=== PATIENT | male | born 1955 | race Caucasian/White ===

== ENCOUNTER 2016-07-06 20:14 | Emergency (ER) | payer OTHER ==
[~2016-07-06] VITALS: Ht 182.9 cm; Wt 81.8 kg
[2016-07-06 20:58] LABS: EOSINOPHIL (%) 3.5 % (0-5); EOSINOPHIL COUNT 0.2 K/uL (0-0.3); HEMATOCRIT 43.1 % (38.0-50.0); IMMATURE GRANULOCYTE (%) 0.3 % (0.0-0.7); INSTRUMENT ABS NEUTROPHIL CT 3.5 K/uL; LYMPHOCYTE COUNT 1.7 K/uL (1.0-2.8); MCH 31.8 PG (29.0-34.0); MCHC 34.8 G/DL (30.0-36.0); MCV 91.3 FL (86-99); MEAN PLAT.VOLUME 9.4 uM^3 (9.0-12.4); MONOCYTE (%) 10.1 % (3-12); MONOCYTE COUNT 0.6 K/uL (0-0.8); NEUTROPHIL (%) 58.4 % (45-76); NEUTROPHIL COUNT 3.5 K/uL (1.8-6.4); PLATELET COUNT 152 K/uL (156-360); RBC DIS.WIDTH-CV 12.2 % (11.8-14.6); RBC DIS.WIDTH-SD 40.9 % (39-53); RED BLOOD COUNT 4.72 M/uL (4.00-5.50)
[2016-07-06 21:08] LABS: CHLORIDE 91 mEq/L (99-109); SODIUM 126 mEq/L (136-147)
[2016-07-06 21:10] LABS: GLUCOSE 86 mg/dL (70-99)
[2016-07-06 21:12] LABS: ANION GAP 12 MEQ/L (2-14); TOTAL BILIRUBIN 0.6 mg/dL (0.0-1.0)
[2016-07-06 21:13] LABS: POTASSIUM 3.9 mEq/L (3.7-5.4)
[2016-07-06 21:14] LABS: ALKALINE PHOSPHATASE 47 IU/L (3-129); GFR ESTIMATE (CALCULATED) > 59 mL/min/
[2016-07-06 21:15] LABS: UREA NITROGEN (BUN) 8 mg/dL (9-23)
[2016-07-06 21:20] LABS: TROP-I INTERPRETATION NEGATIVE; TROPONIN-I < 0.01 ng/mL (0.0-0.30)
[2016-07-06 21:25] LABS: CK-MB 1.7 ng/mL (0.0-4.9)
[2016-07-06 21:35] LABS: BILIRUBIN NEGATIVE; BLOOD NEGATIVE; COLOR YELLOW ((YELLOW)); GLUCOSE (STRIP) NEGATIVE; KETONES NEGATIVE; LEUKOCYTES NEGATIVE; NITRITE NEGATIVE; PROTEIN (STRIP) NEGATIVE; SPECIFIC GRAVITY 1.006 (1.000-1.030); UROBILINOGEN 0.2 MG/DL (0.2-1.0)
[2016-07-06 21:41] LABS: ADD MIUA? NO; UCUL ADDED? NO
[2016-07-06 21:44] LABS: CREATINE KINASE 86 IU/L (1-294); TOTAL CK 86 IU/L (1-294)
[2016-07-06] MEDS ORDERED: LEVAQUIN750 MG PO (23:42)
[2016-07-07 00:03] VITALS: BP 162/88
[2016-07-07] MEDS ORDERED: LEVAQUIN750 MG PO (21:43)
[2016-07-07] MEDS ORDERED: FLOMAX0.4 MG PO (21:43)
[2016-07-07] MEDS ORDERED: FISH OIL300 MG PO (21:44)
== END 2016-07-07 00:06 | disposition left against medical advice (07) ==
LOC: EME 20:14
PROVIDERS: Emergency Medicine
PROC: 0T9B70Z Drainage of Bladder with Drainage Device, Via Natural or Artificial Opening (ICD-10-PCS; principal; 2016-07-06)
DX: R33.9 Retention of urine, unspecified (principal); R91.8 Other nonspecific abnormal finding of lung field; J18.9 Pneumonia, unspecified organism; C79.31 Secondary malignant neoplasm of brain; C79.51 Secondary malignant neoplasm of bone; E87.1 Hypo-osmolality and hyponatremia; R53.1 Weakness; N40.0 Benign prostatic hyperplasia without lower urinary tract symptoms; R20.0 Anesthesia of skin; F17.200 Nicotine dependence, unspecified, uncomplicated
CPT/HCPCS: 70450; 71275; 72132; 74174; 80053; 81003; 82550; 82553; 84484; 85025 91; 86900; 86901; 93005; 99281; 99285; J7040

== ENCOUNTER 2016-07-07 15:53 | Inpatient (IN) | payer OTHER ==
[~2016-07-07] VITALS: Ht 182.9 cm; Wt 76.8 kg
[~2016-07-07 15:53] MED LIST: LEVAQUIN750 MG PO
[2016-07-07 18:21] LABS: EOSINOPHIL (%) 2.5 % (0-5); EOSINOPHIL COUNT 0.2 K/uL (0-0.3); HEMATOCRIT 44.2 % (38.0-50.0); IMMATURE GRANULOCYTE (%) 0.3 % (0.0-0.7); INSTRUMENT ABS NEUTROPHIL CT 3.9 K/uL; LYMPHOCYTE COUNT 1.3 K/uL (1.0-2.8); MCHC 35.1 G/DL (30.0-36.0); MCV 91.1 FL (86-99); MEAN PLAT.VOLUME 9.1 uM^3 (9.0-12.4); MONOCYTE (%) 9.5 % (3-12); MONOCYTE COUNT 0.6 K/uL (0-0.8); NEUTROPHIL COUNT 3.9 K/uL (1.8-6.4); PLATELET COUNT 164 K/uL (156-360); RBC DIS.WIDTH-CV 12.1 % (11.8-14.6); RBC DIS.WIDTH-SD 40.7 % (39-53); RED BLOOD COUNT 4.85 M/uL (4.00-5.50)
[2016-07-07 18:31] LABS: CHLORIDE 93 mEq/L (99-109); POTASSIUM 4.3 mEq/L (3.7-5.4); SODIUM 127 mEq/L (136-147)
[2016-07-07 18:32] LABS: MAGNESIUM 2.2 mg/dL (1.3-2.7)
[2016-07-07 18:34] LABS: GLUCOSE 96 mg/dL (70-99)
[2016-07-07 18:35] LABS: ANION GAP 11 MEQ/L (2-14)
[2016-07-07 18:36] LABS: TOTAL BILIRUBIN 0.6 mg/dL (0.0-1.0)
[2016-07-07 18:37] LABS: ALKALINE PHOSPHATASE 49 IU/L (3-129); GFR ESTIMATE (CALCULATED) > 59 mL/min/
[2016-07-07 18:38] LABS: UREA NITROGEN (BUN) 6 mg/dL (9-23)
[2016-07-07 18:41] LABS: LIPASE 15 U/L (1.0-51.0)
[2016-07-07] MEDS ORDERED: FLOMAX0.4 MG PO (21:43)
[2016-07-07] MEDS ORDERED: LEVAQUIN750 MG PO (21:43)
[2016-07-07] MEDS ORDERED: FISH OIL300 MG PO (21:44)
[2016-07-08 02:05] VITALS: BP 136/67
[2016-07-08 04:00] VITALS: BP 157/81
[2016-07-08 07:09] LABS: HEMATOCRIT 43.9 % (38.0-50.0); MCHC 34.9 G/DL (30.0-36.0); MCV 91.8 FL (86-99); MEAN PLAT.VOLUME 9.8 uM^3 (9.0-12.4); PLATELET COUNT 165 K/uL (156-360); RBC DIS.WIDTH-CV 12.1 % (11.8-14.6); RBC DIS.WIDTH-SD 41.6 % (39-53); RED BLOOD COUNT 4.78 M/uL (4.00-5.50)
[2016-07-08 07:12] LABS: WHITE BLOOD COUNT 3.2 K/uL (4.1-10.2)
[2016-07-08 07:16] LABS: PROTHROMBIN TIME 10.5 (9.2-11.2)
[2016-07-08 07:29] LABS: ALKALINE PHOSPHATASE 50 IU/L (3-129); ANION GAP 7 MEQ/L (2-14); CHLORIDE 96 MEQ/L (99-109); GFR ESTIMATE (CALCULATED) > 59 mL/min/; GLUCOSE 132 mg/dL (70-99); SAMPLE HEMOLYSIS CHECK 0; SAMPLE ICTERIC CHECK 0; SAMPLE LIPEMIA CHECK 0; SODIUM 129 MEQ/L (136-147); TOTAL BILIRUBIN 0.8 MG/DL (0.0-1.0); UREA NITROGEN (BUN) 8 mg/dL (9-23)
[2016-07-08 08:06] VITALS: BP 145/72
[2016-07-08 11:04] VITALS: BP 124/76
[2016-07-08 15:32] VITALS: BP 130/78
[2016-07-08 19:23] VITALS: BP 128/70
[2016-07-09] VITALS (7 sets, daily range): BP systolic 121–168; BP diastolic 73–92
[2016-07-09 11:36] LABS: ANION GAP 5 MEQ/L (2-14); CHLORIDE 98 MEQ/L (99-109); GFR ESTIMATE (CALCULATED) > 59 mL/min/; GLUCOSE 127 mg/dL (70-99); POTASSIUM 4.8 MEQ/L (3.7-5.4); SAMPLE HEMOLYSIS CHECK 0; SAMPLE ICTERIC CHECK 0; SAMPLE LIPEMIA CHECK 0; SODIUM 132 MEQ/L (136-147); UREA NITROGEN (BUN) 12 mg/dL (9-23)
[2016-07-10 03:25] VITALS: BP 147/87
[2016-07-10 08:15] VITALS: BP 150/81
[2016-07-10 11:27] LABS: CHLORIDE 92 MEQ/L (99-109); POTASSIUM 4.4 MEQ/L (3.7-5.4); SODIUM 127 MEQ/L (136-147)
[2016-07-10 11:44] VITALS: BP 147/73
[2016-07-10 11:57] LABS: ANION GAP 7 MEQ/L (2-14); GFR ESTIMATE (CALCULATED) > 59 mL/min/; GLUCOSE 157 mg/dL (70-99); SAMPLE HEMOLYSIS CHECK 0; SAMPLE ICTERIC CHECK 0; SAMPLE LIPEMIA CHECK 0; UREA NITROGEN (BUN) 12 mg/dL (9-23)
[2016-07-10 16:16] VITALS: BP 128/76
[2016-07-10 19:43] VITALS: BP 137/75
[2016-07-10 23:49] VITALS: BP 155/77
[2016-07-11 03:41] VITALS: BP 143/84
[2016-07-11 07:40] VITALS: BP 137/79
[2016-07-11 11:02] LABS: ANION GAP 5 MEQ/L (2-14); CHLORIDE 99 MEQ/L (99-109); GFR ESTIMATE (CALCULATED) > 59 mL/min/; GLUCOSE 125 mg/dL (70-99); SAMPLE HEMOLYSIS CHECK 0; SAMPLE ICTERIC CHECK 0; SAMPLE LIPEMIA CHECK 0; UREA NITROGEN (BUN) 14 mg/dL (9-23)
[2016-07-11 11:12] LABS: POTASSIUM 5.6 MEQ/L (3.7-5.4); SODIUM 134 MEQ/L (136-147)
[2016-07-11 11:13] VITALS: BP 144/77
[2016-07-11 15:00] VITALS: BP 161/78
[2016-07-11 15:16] VITALS: BP 167/87
[2016-07-11 19:55] VITALS: BP 163/74
[2016-07-12 00:05] VITALS: BP 137/73
[2016-07-12 03:46] VITALS: BP 140/76
[2016-07-12 06:48] LABS: HEMATOCRIT 42.3 % (38.0-50.0); MCH 32.2 PG (29.0-34.0); MCHC 34.8 G/DL (30.0-36.0); MCV 92.6 FL (86-99); MEAN PLAT.VOLUME 9.9 uM^3 (9.0-12.4); PLATELET COUNT 181 K/uL (156-360); RBC DIS.WIDTH-CV 12.3 % (11.8-14.6); RBC DIS.WIDTH-SD 42.5 % (39-53); RED BLOOD COUNT 4.57 M/uL (4.00-5.50)
[2016-07-12 06:51] LABS: WHITE BLOOD COUNT 7.4 K/uL (4.1-10.2)
[2016-07-12 07:21] LABS: ANION GAP 8 MEQ/L (2-14); CHLORIDE 98 MEQ/L (99-109); GFR ESTIMATE (CALCULATED) > 59 mL/min/; GLUCOSE 107 mg/dL (70-99); POTASSIUM 4.2 MEQ/L (3.7-5.4); SAMPLE HEMOLYSIS CHECK 0; SAMPLE ICTERIC CHECK 0; SAMPLE LIPEMIA CHECK 0; SODIUM 133 MEQ/L (136-147); UREA NITROGEN (BUN) 14 mg/dL (9-23)
[2016-07-12 07:52] VITALS: BP 150/77
[2016-07-12 10:55] LABS: ANION GAP 8 MEQ/L (2-14); CHLORIDE 100 MEQ/L (99-109); GFR ESTIMATE (CALCULATED) > 59 mL/min/; GLUCOSE 128 mg/dL (70-99); POTASSIUM 3.7 MEQ/L (3.7-5.4); SAMPLE HEMOLYSIS CHECK 0; SAMPLE ICTERIC CHECK 0; SAMPLE LIPEMIA CHECK 0; SODIUM 134 MEQ/L (136-147); UREA NITROGEN (BUN) 15 mg/dL (9-23)
[2016-07-12 11:37] VITALS: BP 138/78
[2016-07-12 15:36] VITALS: BP 174/82
[2016-07-12 19:47] VITALS: BP 138/82
[2016-07-13] VITALS (7 sets, daily range): BP systolic 125–143; BP diastolic 66–92
[2016-07-14 03:46] VITALS: BP 147/78
[2016-07-14 07:27] VITALS: BP 141/70
[2016-07-14 15:30] VITALS: BP 174/81
[2016-07-14 23:56] VITALS: BP 152/76
[2016-07-15 08:36] VITALS: BP 150/75
[2016-07-15] MEDS ORDERED: DEXAMETHASONE4 MG PO ×2 (11:43)
[2016-07-15] MEDS ORDERED: NICOTINE PATCH1 EAC2 TD (11:43)
[2016-07-15] MEDS ORDERED: DECADRON2 MG PO (11:43)
[2016-07-15 13:11] VITALS: BP 152/77
[2016-07-15] MEDS ORDERED: LOVENOX40 MG/0.4 SC (18:02)
[2016-07-15] MEDS ORDERED: PROTONIX40 MG PO (18:02)
[2016-07-15] MEDS ORDERED: KEPPRA500 MG PO (18:03)
[2016-07-15] MEDS ORDERED: SODIUM CHLORIDE1 G1 PO (18:03)
== END 2016-07-15 16:06 | DRG 54 ==
LOC: EME 15:53 → EDOF 23:25 → 5SOUTH 23:25
PROVIDERS: Internal Medicine; Physician Assistant
PROC: 0BBJ3ZX Excision of Left Lower Lung Lobe, Percutaneous Approach, Diagnostic (ICD-10-PCS; principal; 2016-07-11)
DX: C79.49 Secondary malignant neoplasm of other parts of nervous system (principal); G93.6 Cerebral edema; J18.8 Other pneumonia, unspecified organism; E22.2 Syndrome of inappropriate secretion of antidiuretic hormone; G95.0 Syringomyelia and syringobulbia; C79.31 Secondary malignant neoplasm of brain; C79.51 Secondary malignant neoplasm of bone; C34.32 Malignant neoplasm of lower lobe, left bronchus or lung; M51.06 Intervertebral disc disorders with myelopathy, lumbar region; R33.9 Retention of urine, unspecified; G81.91 Hemiplegia, unspecified affecting right dominant side; L89.152 Pressure ulcer of sacral region, stage 2; F17.210 Nicotine dependence, cigarettes, uncomplicated; R10.13 Epigastric pain; R29.2 Abnormal reflex; R20.0 Anesthesia of skin; N40.1 Benign prostatic hyperplasia with lower urinary tract symptoms; I10 Essential (primary) hypertension; N13.8 Other obstructive and reflux uropathy; R33.8 Other retention of urine; R73.9 Hyperglycemia, unspecified; R15.9 Full incontinence of feces; R32 Unspecified urinary incontinence; E87.5 Hyperkalemia
CPT/HCPCS: 36415; 70450; 70553; 71010; 71275; 72132; 72156; 72157; 72158; 74174; 77012; 77280; 77306; 77331; 77334; 77402; 77417; 77470; 80048; 80048 91; 80053; 81003; 82550; 82553; 83690; 83735; 83930; 83935; 84132 91; 84300; 84443; 84484; 85025; 85025 91; 85027; 85610; 85730; 86900; 86901; 88305; 88341 TC; 88342 TC; 93005; 97530 GO; 97530 GP; 99281; 99285; C9113; G0103; J1100; J1644; J1650; J1956; J2060; J2270; J2405; J3010; J3411; J3475; J7030; J7040; J7050

== ENCOUNTER 2016-07-15 11:40 | Inpatient (IN) | payer OTHER ==
[~2016-07-15] VITALS: Ht 182.9 cm; Wt 76.0 kg
[~2016-07-15 11:40] MED LIST changes: +FISH OIL300 MG PO; +FLOMAX0.4 MG PO
[2016-07-15] MEDS ORDERED: DEXAMETHASONE4 MG PO ×2 (11:43)
[2016-07-15] MEDS ORDERED: NICOTINE PATCH1 EAC2 TD (11:43)
[2016-07-15] MEDS ORDERED: DECADRON2 MG PO (11:43)
[2016-07-15 16:30] VITALS: BP 168/84
[2016-07-15] MEDS ORDERED: LOVENOX40 MG/0.4 SC (18:02)
[2016-07-15] MEDS ORDERED: PROTONIX40 MG PO (18:02)
[2016-07-15] MEDS ORDERED: KEPPRA500 MG PO (18:03)
[2016-07-15] MEDS ORDERED: SODIUM CHLORIDE1 G1 PO (18:03)
[2016-07-15 23:59] VITALS: BP 138/74
[2016-07-16 05:34] VITALS: BP 136/79
[2016-07-16 05:34] LABS: HEMATOCRIT 42.3 % (38.0-50.0); MCH 33.1 PG (29.0-34.0); MCHC 36.4 G/DL (30.0-36.0); MEAN PLAT.VOLUME 9.5 uM^3 (9.0-12.4); PLATELET COUNT 191 K/uL (156-360); RBC DIS.WIDTH-CV 12.3 % (11.8-14.6); RBC DIS.WIDTH-SD 40.9 % (39-53); RED BLOOD COUNT 4.65 M/uL (4.00-5.50); WHITE BLOOD COUNT 7.4 K/uL (4.1-10.2)
[2016-07-16 05:59] LABS: ALKALINE PHOSPHATASE 34 IU/L (3-129); ANION GAP 7 MEQ/L (2-14); CHLORIDE 99 MEQ/L (99-109); GFR ESTIMATE (CALCULATED) > 59 mL/min/; GLUCOSE 138 mg/dL (70-99); POTASSIUM 3.6 MEQ/L (3.7-5.4); SAMPLE HEMOLYSIS CHECK 0; SAMPLE ICTERIC CHECK 0; SAMPLE LIPEMIA CHECK 0; SODIUM 133 MEQ/L (136-147); TOTAL BILIRUBIN 0.4 MG/DL (0.0-1.0); UREA NITROGEN (BUN) 18 mg/dL (9-23)
[2016-07-16 15:21] VITALS: BP 143/68
[2016-07-17 06:44] VITALS: BP 166/81
[2016-07-17 15:58] VITALS: BP 92/63
[2016-07-18 05:21] VITALS: BP 126/81
[2016-07-18 15:00] VITALS: BP 144/75
[2016-07-18 16:45] LABS: HEMATOCRIT 45.4 % (38.0-50.0); MCH 32.2 PG (29.0-34.0); MCV 91.9 FL (86-99); MEAN PLAT.VOLUME 8.7 uM^3 (9.0-12.4); PLATELET COUNT 208 K/uL (156-360); RBC DIS.WIDTH-CV 12.4 % (11.8-14.6); RED BLOOD COUNT 4.94 M/uL (4.00-5.50)
[2016-07-18 16:46] LABS: WHITE BLOOD COUNT 10.2 K/uL (4.1-10.2)
[2016-07-18 16:50] LABS: CHLORIDE 97 mEq/L (99-109); SODIUM 136 mEq/L (136-147)
[2016-07-18 16:51] LABS: POTASSIUM 4.4 mEq/L (3.7-5.4)
[2016-07-18 16:53] LABS: ANION GAP 10 MEQ/L (2-14)
[2016-07-18 16:55] LABS: GLUCOSE 101 mg/dL (70-99)
[2016-07-18 16:56] LABS: GFR ESTIMATE (CALCULATED) > 59 mL/min/
[2016-07-18 16:57] LABS: UREA NITROGEN (BUN) 15 mg/dL (9-23)
[2016-07-19 05:23] VITALS: BP 125/60
[2016-07-19 15:09] VITALS: BP 117/69
[2016-07-20 05:20] VITALS: BP 131/72
[2016-07-20 15:00] VITALS: BP 109/72
[2016-07-21 04:45] VITALS: BP 123/61
[2016-07-21 15:42] VITALS: BP 116/61
[2016-07-22 05:15] VITALS: BP 120/55
[2016-07-22 15:30] VITALS: BP 118/72
[2016-07-23 05:56] VITALS: BP 128/58
[2016-07-23 15:40] VITALS: BP 123/60
[2016-07-24 05:12] VITALS: BP 111/56
[2016-07-24 05:48] LABS: EOSINOPHIL (%) 0.7 % (0-5); EOSINOPHIL COUNT 0.1 K/uL (0-0.3); HEMATOCRIT 40.8 % (38.0-50.0); IMMATURE GRANULOCYTE (%) 0.9 % (0.0-0.7); IMMATURE GRANULOCYTE COUNT 0.1 K/uL; INSTRUMENT ABS NEUTROPHIL CT 8.8 K/uL; MCH 33.2 PG (29.0-34.0); MCHC 34.8 G/DL (30.0-36.0); MCV 95.3 FL (86-99); MEAN PLAT.VOLUME 8.6 uM^3 (9.0-12.4); MONOCYTE (%) 9.5 % (3-12); MONOCYTE COUNT 1.1 K/uL (0-0.8); NEUTROPHIL (%) 79.5 % (45-76); NEUTROPHIL COUNT 8.8 K/uL (1.8-6.4); PLATELET COUNT 281 K/uL (156-360); RBC DIS.WIDTH-CV 13.3 % (11.8-14.6); RBC DIS.WIDTH-SD 46.7 % (39-53); RED BLOOD COUNT 4.28 M/uL (4.00-5.50); WHITE BLOOD COUNT 11.1 K/uL (4.1-10.2)
[2016-07-24 06:15] LABS: ALKALINE PHOSPHATASE 44 IU/L (3-129); ANION GAP 11 MEQ/L (2-14); CHLORIDE 99 MEQ/L (99-109); GFR ESTIMATE (CALCULATED) > 59 mL/min/; GLUCOSE 102 mg/dL (70-99); POTASSIUM 3.6 MEQ/L (3.7-5.4); SAMPLE HEMOLYSIS CHECK 0; SAMPLE ICTERIC CHECK 0; SAMPLE LIPEMIA CHECK 0; SODIUM 138 MEQ/L (136-147); TOTAL BILIRUBIN 0.3 MG/DL (0.0-1.0); UREA NITROGEN (BUN) 16 mg/dL (9-23)
[2016-07-24 17:01] VITALS: BP 138/66
[2016-07-25 05:58] VITALS: BP 131/71
[2016-07-25 15:45] VITALS: BP 160/71
[2016-07-26 05:06] VITALS: BP 132/65
[2016-07-26 15:59] VITALS: BP 163/68
[2016-07-27 04:56] VITALS: BP 129/61
[2016-07-27 16:45] VITALS: BP 127/62
[2016-07-28 06:09] VITALS: BP 142/66
[2016-07-28 15:15] VITALS: BP 171/79
[2016-07-29 05:43] VITALS: BP 141/68
[2016-07-30 05:40] VITALS: BP 141/70
[2016-07-30 15:42] VITALS: BP 151/71
[2016-07-31 06:26] VITALS: BP 123/64
[2016-07-31 07:22] LABS: MCH 32.6 PG (29.0-34.0); MCV 95.7 FL (86-99); RBC DIS.WIDTH-SD 49.1 % (39-53); WHITE BLOOD COUNT 9.2 K/uL (4.1-10.2)
[2016-07-31 07:45] LABS: MEAN PLAT.VOLUME 8.6 uM^3 (9.0-12.4)
[2016-07-31 07:46] LABS: ALKALINE PHOSPHATASE 53 IU/L (3-129); ANION GAP 12 MEQ/L (2-14); CHLORIDE 100 MEQ/L (99-109); GFR ESTIMATE (CALCULATED) > 59 mL/min/; GLUCOSE 108 mg/dL (70-99); PLATELET COUNT 170 K/uL (156-360); POTASSIUM 4.1 MEQ/L (3.7-5.4); SAMPLE HEMOLYSIS CHECK 1; SAMPLE ICTERIC CHECK 0; SAMPLE LIPEMIA CHECK 1; SODIUM 137 MEQ/L (136-147); TOTAL BILIRUBIN 0.3 MG/DL (0.0-1.0); UREA NITROGEN (BUN) 19 mg/dL (9-23)
[2016-07-31 15:55] VITALS: BP 169/93
[2016-08-01 05:58] VITALS: BP 146/79
[2016-08-01 15:40] VITALS: BP 133/60
[2016-08-02 05:37] VITALS: BP 155/76
[2016-08-02 15:03] VITALS: BP 152/82
[2016-08-03 04:40] VITALS: BP 145/74
[2016-08-04 04:00] VITALS: BP 160/62
[2016-08-04 07:04] LABS: HEMATOCRIT 44.9 % (38.0-50.0); MCH 32.5 PG (29.0-34.0); MCHC 33.4 G/DL (30.0-36.0); MCV 97.4 FL (86-99); MEAN PLAT.VOLUME 8.5 uM^3 (9.0-12.4); PLATELET COUNT 168 K/uL (156-360); RBC DIS.WIDTH-SD 50.1 % (39-53); RED BLOOD COUNT 4.61 M/uL (4.00-5.50); WHITE BLOOD COUNT 8.4 K/uL (4.1-10.2)
[2016-08-04 07:32] LABS: ALKALINE PHOSPHATASE 50 IU/L (3-129); ANION GAP 12 MEQ/L (2-14); CHLORIDE 95 MEQ/L (99-109); GFR ESTIMATE (CALCULATED) > 59 mL/min/; GLUCOSE 87 mg/dL (70-99); SAMPLE HEMOLYSIS CHECK 0; SAMPLE ICTERIC CHECK 0; SAMPLE LIPEMIA CHECK 0; SODIUM 136 MEQ/L (136-147); UREA NITROGEN (BUN) 20 mg/dL (9-23)
[2016-08-04 07:36] LABS: POTASSIUM 3.2 MEQ/L (3.7-5.4); TOTAL BILIRUBIN 0.4 MG/DL (0.0-1.0)
[2016-08-04 15:39] VITALS: BP 129/75
[2016-08-05 04:35] VITALS: BP 188/94
[2016-08-05 06:53] LABS: ANION GAP 10 MEQ/L (2-14); CHLORIDE 97 MEQ/L (99-109); GFR ESTIMATE (CALCULATED) > 59 mL/min/; GLUCOSE 82 mg/dL (70-99); POTASSIUM 4.4 MEQ/L (3.7-5.4); SAMPLE HEMOLYSIS CHECK 0; SAMPLE ICTERIC CHECK 0; SAMPLE LIPEMIA CHECK 0; SODIUM 137 MEQ/L (136-147); UREA NITROGEN (BUN) 20 mg/dL (9-23)
[2016-08-05 07:59] VITALS: BP 137/67
[2016-08-05 12:23] VITALS: BP 135/79
[2016-08-05] MEDS ORDERED: DECADRON2 MG PO (12:49)
[2016-08-05] MEDS ORDERED: ZINC OXIDE56.7 GM TP (12:49)
[2016-08-05] MEDS ORDERED: ACETAMINOPHEN-1 EAC1 PO (12:49)
[2016-08-05] MEDS ORDERED: LOVENOX40 MG/0.4 SC (12:49)
[2016-08-05] MEDS ORDERED: FLOMAX0.4 MG PO (12:49)
[2016-08-05] MEDS ORDERED: LIDOCAINE700 MG TD (12:49)
[2016-08-05] MEDS ORDERED: PROTONIX40 MG PO (12:49)
[2016-08-05] MEDS ORDERED: SSD25GM TP (12:49)
[2016-08-05] MEDS ORDERED: KEPPRA500 MG PO (12:49)
[2016-08-05] MEDS ORDERED: SENNA PLUS TAB1 EACH PO (12:49)
[2016-08-05 15:17] LABS: HEMATOCRIT 44.3 % (38.0-50.0); MCH 31.8 PG (29.0-34.0); MCHC 33.4 G/DL (30.0-36.0); MCV 95.3 FL (86-99); MEAN PLAT.VOLUME 8.3 uM^3 (9.0-12.4); PLATELET COUNT 164 K/uL (156-360); RBC DIS.WIDTH-CV 13.8 % (11.8-14.6); RBC DIS.WIDTH-SD 48.5 % (39-53); RED BLOOD COUNT 4.65 M/uL (4.00-5.50); WHITE BLOOD COUNT 7.5 K/uL (4.1-10.2)
[2016-08-05 15:33] VITALS: BP 146/69
[2016-08-05 15:56] LABS: TROP-I INTERPRETATION NEGATIVE; TROPONIN-I < 0.01 ng/mL (0.0-0.30)
== END 2016-08-05 17:23 | disposition home health service (06) | DRG 945 ==
LOC: 3WEST 11:40
PROVIDERS: Physical Medicine & Rehabilitation Pain Medicine; Psychiatry & Neurology Neurology
PROC: F07 Physical Rehabilitation and Diagnostic Audiology, Rehabilitation, Motor Treatment (ICD-10-PCS; principal; 2016-07-15)
DX: R53.1 Weakness (principal); J18.9 Pneumonia, unspecified organism; C79.89 Secondary malignant neoplasm of other specified sites; G95.0 Syringomyelia and syringobulbia; C78.02 Secondary malignant neoplasm of left lung; E22.2 Syndrome of inappropriate secretion of antidiuretic hormone; Z74.09 Other reduced mobility; L89.322 Pressure ulcer of left buttock, stage 2; L89.312 Pressure ulcer of right buttock, stage 2; G93.9 Disorder of brain, unspecified; G82.20 Paraplegia, unspecified; N13.8 Other obstructive and reflux uropathy; R15.9 Full incontinence of feces; M48.02 Spinal stenosis, cervical region; G95.9 Disease of spinal cord, unspecified; N31.9 Neuromuscular dysfunction of bladder, unspecified; F17.200 Nicotine dependence, unspecified, uncomplicated; T24.212A Burn of second degree of left thigh, initial encounter; T24.211A Burn of second degree of right thigh, initial encounter; R73.9 Hyperglycemia, unspecified; M51.37 Other intervertebral disc degeneration, lumbosacral region; E87.6 Hypokalemia; R10.13 Epigastric pain; M25.78 Osteophyte, vertebrae; N40.1 Benign prostatic hyperplasia with lower urinary tract symptoms
CPT/HCPCS: 71020; 77295; 77300; 77334; 77372; 80048; 80053; 84484; 85025; 85027; 97110 GO; 97112 GO; 97530 GP; C1755; J1650; J8540

== ENCOUNTER → 2016-09-23 | Emergency (ER) | payer OTHER ==
[~2016-09-23] VITALS: Ht 182.9 cm; Wt 73.3 kg
[~2016-09-23] MED LIST changes: +ACETAMINOPHEN-1 EAC1 PO; +DECADRON2 MG PO; +DEXAMETHASONE4 MG PO; +KEPPRA500 MG PO; +LIDOCAINE700 MG TD; +LOVENOX40 MG/0.4 SC; +NICOTINE PATCH1 EAC2 TD; +PROTONIX40 MG PO; +SENNA PLUS TAB1 EACH PO; +SODIUM CHLORIDE1 G1 PO; +SSD25GM TP; +ZINC OXIDE56.7 GM TP
[2016-09-23 15:49] LABS: BASOPHIL COUNT 0.1 K/uL (0-0.1); EOSINOPHIL (%) 0 % (0-5); IMMATURE GRANULOCYTE (%) 1.2 % (0.0-0.7); IMMATURE GRANULOCYTE COUNT 0.4 K/uL; LYMPHOCYTE COUNT 0.4 K/uL (1.0-2.8); MEAN PLAT.VOLUME 8.2 uM^3 (9.0-12.4); MONOCYTE (%) 1.5 % (3-12); MONOCYTE COUNT 0.5 K/uL (0-0.8); NEUTROPHIL (%) 95.9 % (45-76); PLATELET COUNT 509 K/uL (156-360)
[2016-09-23 16:05] LABS: HEMATOCRIT 29.9 % (38.0-50.0); MCH 28.9 PG (29.0-34.0); MCHC 33.4 G/DL (30.0-36.0); RBC DIS.WIDTH-CV 14.6 % (11.8-14.6); RED BLOOD COUNT 3.46 M/uL (4.00-5.50)
[2016-09-23 16:06] LABS: MCV 86.4 FL (86-99); WHITE BLOOD COUNT 30.2 K/uL (4.1-10.2)
[2016-09-23 16:18] LABS: TROP-I INTERPRETATION NEGATIVE; TROPONIN-I < 0.01 ng/mL (0.0-0.30)
[2016-09-23 16:19] LABS: ALKALINE PHOSPHATASE 97 IU/L (3-129); ANION GAP 19 MEQ/L (2-14); CHLORIDE 93 mEq/L (99-109); GFR ESTIMATE (CALCULATED) > 59 mL/min/; GLUCOSE 115 mg/dL (70-99); POTASSIUM 3.7 mEq/L (3.7-5.4); SODIUM 131 mEq/L (136-147); TOTAL BILIRUBIN 0.9 mg/dL (0.0-1.0); UREA NITROGEN (BUN) 11 mg/dL (9-23)
[2016-09-23 16:44] LABS: ADD MIUA? YES; BILIRUBIN NEGATIVE; BLOOD SMALL; COLOR AMBER ((YELLOW)); GLUCOSE (STRIP) NEGATIVE; KETONES 20; LEUKOCYTES MODERATE; NITRITE NEGATIVE; PROTEIN (STRIP) 100; SPECIFIC GRAVITY 1.025 (1.000-1.030)
[2016-09-23 17:09] LABS: BACTERIA 3+ /HPF; CASTS NONE SEEN /LPF; CRYSTALS NONE SEEN; EPITHELIAL CELLS 1+ /HPF; MUCUS 2+ /LPF; RED BLOOD CELLS 0-5 /HPF (0-5); UCUL ADDED? YES; WHITE BLOOD CELLS TNTC /HPF (0-5)
[2016-09-23 22:35] VITALS: BP 108/75
== END | disposition short-term general hospital (02) ==
LOC: EME 15:18
PROVIDERS: Emergency Medicine
PROC: 05HM33Z Insertion of Infusion Device into Right Internal Jugular Vein, Percutaneous Approach (ICD-10-PCS; principal; 2016-09-23)
DX: R65.21 Severe sepsis with septic shock (principal); R09.02 Hypoxemia; C34.90 Malignant neoplasm of unspecified part of unspecified bronchus or lung; C79.51 Secondary malignant neoplasm of bone; E87.2 Acidosis; N39.0 Urinary tract infection, site not specified; L89.150 Pressure ulcer of sacral region, unstageable; L08.9 Local infection of the skin and subcutaneous tissue, unspecified; G82.20 Paraplegia, unspecified; F17.200 Nicotine dependence, unspecified, uncomplicated
CPT/HCPCS: 71010; 71275; 80053; 81003; 83605; 84484; 85025; 85379; 87040; 87077; 87086; 87186; 87801; 93005; 94640; 99281; 99285; J2543; J3260; J3370; J7030; J7050; J7120

== ENCOUNTER 2016-10-25 16:11 | Emergency (ER) | payer OTHER ==
[~2016-10-25] VITALS: Ht 182.9 cm; Wt 70.0 kg
[2016-10-25 17:06] LABS: HEMATOCRIT 27.9 % (38.0-50.0); MCH 25.3 PG (29.0-34.0); MCHC 30.5 G/DL (30.0-36.0); MEAN PLAT.VOLUME 8.5 uM^3 (9.0-12.4); PLATELET COUNT 376 K/uL (156-360); RBC DIS.WIDTH-CV 15.7 % (11.8-14.6); RBC DIS.WIDTH-SD 47.2 % (39-53); RED BLOOD COUNT 3.36 M/uL (4.00-5.50); WHITE BLOOD COUNT 11.5 K/uL (4.1-10.2)
[2016-10-25 17:10] LABS: ADD MIUA? YES; BILIRUBIN NEGATIVE; BLOOD LARGE; COLOR AMBER ((YELLOW)); GLUCOSE (STRIP) NEGATIVE; KETONES NEGATIVE; LEUKOCYTES MODERATE; NITRITE NEGATIVE; PROTEIN (STRIP) 100; SPECIFIC GRAVITY 1.025 (1.000-1.030); UROBILINOGEN 0.2 MG/DL (0.2-1.0)
[2016-10-25 17:18] LABS: CHLORIDE 97 mEq/L (99-109); POTASSIUM 4.3 mEq/L (3.7-5.4); SODIUM 134 mEq/L (136-147)
[2016-10-25 17:18] LABS: BACTERIA NONE SEEN /HPF; BUDDING YEAST 2+; CALCIUM OXALATE CRYSTALS 4+ /HPF; EPITHELIAL CELLS RARE /HPF; MUCUS 4+ /LPF; RED BLOOD CELLS TNTC /HPF (0-5); WHITE BLOOD CELLS TNTC /HPF (0-5); WHITE BLOOD CELLS CLUMP FEW /HPF (0-5)
[2016-10-25 17:20] LABS: GLUCOSE 101 mg/dL (70-99)
[2016-10-25 17:22] LABS: ANION GAP 12 MEQ/L (2-14)
[2016-10-25 17:24] LABS: GFR ESTIMATE (CALCULATED) > 59 mL/min/
[2016-10-25 17:25] LABS: UREA NITROGEN (BUN) 14 mg/dL (9-23)
[2016-10-25] MEDS ORDERED: LEVAQUIN750 MG PO (18:11)
[2016-10-25 18:59] VITALS: BP 118/76
== END 2016-10-25 19:41 | disposition home or self-care (01) ==
LOC: EME 16:11
PROVIDERS: Emergency Medicine
PROC: 0T2BX0Z Change Drainage Device in Bladder, External Approach (ICD-10-PCS; principal; 2016-10-25)
DX: N39.0 Urinary tract infection, site not specified (principal); Z46.6 Encounter for fitting and adjustment of urinary device; N40.1 Benign prostatic hyperplasia with lower urinary tract symptoms; R33.8 Other retention of urine; C34.32 Malignant neoplasm of lower lobe, left bronchus or lung; K21.9 Gastro-esophageal reflux disease without esophagitis; G83.9 Paralytic syndrome, unspecified; Z85.830 Personal history of malignant neoplasm of bone; F17.200 Nicotine dependence, unspecified, uncomplicated
CPT/HCPCS: 71010; 80048; 81003; 85027; 87086; 99281; 99284; J7030

== ENCOUNTER 2016-10-28 14:09 | Emergency (ER) | payer OTHER ==
[~2016-10-28] VITALS: Ht 182.9 cm; Wt 68.9 kg
[2016-10-28 16:05] LABS: EOSINOPHIL (%) 1.6 % (0-5); EOSINOPHIL COUNT 0.2 K/uL (0-0.3); HEMATOCRIT 23.3 % (38.0-50.0); IMMATURE GRANULOCYTE (%) 0.5 % (0.0-0.7); IMMATURE GRANULOCYTE COUNT 0.1 K/uL; INSTRUMENT ABS NEUTROPHIL CT 9.6 K/uL; MCH 25.3 PG (29.0-34.0); MCHC 30.5 G/DL (30.0-36.0); MCV 82.9 FL (86-99); MEAN PLAT.VOLUME 8.6 uM^3 (9.0-12.4); MONOCYTE (%) 6.4 % (3-12); MONOCYTE COUNT 0.7 K/uL (0-0.8); NEUTROPHIL (%) 82.8 % (45-76); NEUTROPHIL COUNT 9.6 K/uL (1.8-6.4); PLATELET COUNT 293 K/uL (156-360); RBC DIS.WIDTH-CV 15.5 % (11.8-14.6); RBC DIS.WIDTH-SD 46.8 % (39-53); RED BLOOD COUNT 2.81 M/uL (4.00-5.50); WHITE BLOOD COUNT 11.6 K/uL (4.1-10.2)
[2016-10-28 16:13] LABS: CHLORIDE 100 mEq/L (99-109); SODIUM 136 mEq/L (136-147)
[2016-10-28 16:16] LABS: GLUCOSE 101 mg/dL (70-99)
[2016-10-28 16:17] LABS: ANION GAP 11 MEQ/L (2-14)
[2016-10-28 16:18] LABS: TOTAL BILIRUBIN 0.3 mg/dL (0.0-1.0)
[2016-10-28 16:19] LABS: ALKALINE PHOSPHATASE 150 IU/L (3-129); GFR ESTIMATE (CALCULATED) > 59 mL/min/
[2016-10-28 16:20] LABS: UREA NITROGEN (BUN) 16 mg/dL (9-23)
[2016-10-28 18:55] LABS: ADD MIUA? YES; BILIRUBIN SMALL; BLOOD SMALL; COLOR AMBER ((YELLOW)); GLUCOSE (STRIP) NEGATIVE; KETONES 5; LEUKOCYTES MODERATE; NITRITE NEGATIVE; PROTEIN (STRIP) 100; SPECIFIC GRAVITY 1.032 (1.000-1.030); UROBILINOGEN 0.2 MG/DL (0.2-1.0)
[2016-10-28 19:19] LABS: BACTERIA RARE /HPF; CALCIUM OXALATE CRYSTALS 1+ /HPF; CASTS NONE SEEN /LPF; CRYSTALS PRESENT; EPITHELIAL CELLS RARE /HPF; MUCUS NONE SEEN /LPF; UCUL ADDED? YES; WHITE BLOOD CELLS TNTC /HPF (0-5)
[2016-10-28] MEDS ORDERED: CIPRO500 MG PO (21:02)
[2016-10-29 00:48] VITALS: BP 147/89
[2016-10-30] MEDS ORDERED: MIRALAX255 GM PO (16:22)
[2016-10-30] MEDS ORDERED: PROAIR HFA8.5 GM IH (16:22)
[2016-10-30] MEDS ORDERED: SPIRIVA1 INHALATI IH (16:23)
[2016-10-30] MEDS ORDERED: PERCOCET 10/1 TABLET PO (16:23)
[2016-10-30] MEDS ORDERED: [UNRECOGNIZED DRUG - OTHER] (16:24)
[2016-10-30] MEDS ORDERED: INVANZ1 GM IV (16:25)
== END 2016-10-29 00:50 | disposition home or self-care (01) ==
LOC: EME 14:09
PROVIDERS: Emergency Medicine
DX: N39.0 Urinary tract infection, site not specified (principal); C34.90 Malignant neoplasm of unspecified part of unspecified bronchus or lung; C79.31 Secondary malignant neoplasm of brain; C79.51 Secondary malignant neoplasm of bone; F17.200 Nicotine dependence, unspecified, uncomplicated
CPT/HCPCS: 70450; 71010; 80053; 81003; 83605; 85025; 87086; 87106; J0696; J7030; J7050

== ENCOUNTER 2016-10-30 02:06 | Inpatient (IN) | payer OTHER ==
[~2016-10-30] VITALS: Ht 182.9 cm; Wt 74.8 kg
[~2016-10-30 02:06] MED LIST changes: +CIPRO500 MG PO
[2016-10-30 02:51] LABS: EOSINOPHIL (%) 3.4 % (0-5); EOSINOPHIL COUNT 0.3 K/uL (0-0.3); HEMATOCRIT 25.2 % (38.0-50.0); IMMATURE GRANULOCYTE (%) 0.5 % (0.0-0.7); LYMPHOCYTE COUNT 0.9 K/uL (1.0-2.8); MCH 24.8 PG (29.0-34.0); MCHC 29.8 G/DL (30.0-36.0); MCV 83.2 FL (86-99); MEAN PLAT.VOLUME 8.9 uM^3 (9.0-12.4); MONOCYTE COUNT 0.6 K/uL (0-0.8); NEUTROPHIL (%) 78.7 % (45-76); PLATELET COUNT 322 K/uL (156-360); RBC DIS.WIDTH-CV 15.8 % (11.8-14.6); RBC DIS.WIDTH-SD 47.6 % (39-53); RED BLOOD COUNT 3.03 M/uL (4.00-5.50); WHITE BLOOD COUNT 8.8 K/uL (4.1-10.2)
[2016-10-30 03:01] LABS: CHLORIDE 99 mEq/L (99-109); POTASSIUM 3.9 mEq/L (3.7-5.4); SODIUM 136 mEq/L (136-147)
[2016-10-30 03:02] LABS: GLUCOSE 100 mg/dL (70-99)
[2016-10-30 03:04] LABS: ANION GAP 11 MEQ/L (2-14)
[2016-10-30 03:06] LABS: GFR ESTIMATE (CALCULATED) > 59 mL/min/
[2016-10-30 03:07] LABS: UREA NITROGEN (BUN) 18 mg/dL (9-23)
[2016-10-30 06:02] VITALS: BP 109/60
[2016-10-30 07:42] VITALS: BP 109/64
[2016-10-30 16:00] VITALS: BP 106/62
[2016-10-30] MEDS ORDERED: PROAIR HFA8.5 GM IH (16:22)
[2016-10-30] MEDS ORDERED: MIRALAX255 GM PO (16:22)
[2016-10-30] MEDS ORDERED: PERCOCET 10/1 TABLET PO (16:23)
[2016-10-30] MEDS ORDERED: SPIRIVA1 INHALATI IH (16:23)
[2016-10-30] MEDS ORDERED: [UNRECOGNIZED DRUG - OTHER] (16:24)
[2016-10-30] MEDS ORDERED: INVANZ1 GM IV (16:25)
[2016-10-30 19:28] VITALS: BP 123/72
[2016-10-31 00:02] VITALS: BP 135/69
[2016-10-31 08:14] VITALS: BP 130/61
[2016-10-31 11:48] VITALS: BP 126/72
[2016-10-31 19:20] VITALS: BP 156/79
[2016-10-31 23:25] VITALS: BP 152/78
[2016-11-01 06:50] VITALS: BP 166/82
[2016-11-01 15:00] VITALS: BP 107/57
[2016-11-01 15:06] LABS: ADD MIUA? YES; BILIRUBIN NEGATIVE; BLOOD NEGATIVE; COLOR YELLOW ((YELLOW)); GLUCOSE (STRIP) NEGATIVE; KETONES NEGATIVE; LEUKOCYTES LARGE; NITRITE NEGATIVE; PROTEIN (STRIP) NEGATIVE; SPECIFIC GRAVITY 1.024 (1.000-1.030)
[2016-11-01 15:36] LABS: RED BLOOD CELLS 0-5 /HPF (0-5)
[2016-11-01 15:38] LABS: BACTERIA 2+ /HPF; CASTS PRESENT /LPF; EPITHELIAL CELLS RARE /HPF; MUCUS 2+ /LPF; UCUL ADDED? YES; WHITE BLOOD CELLS 40-50 /HPF (0-5)
[2016-11-01 15:39] LABS: CALCIUM OXALATE CRYSTALS RARE /HPF; CRYSTALS PRESENT; HYALINE CASTS 0-5 /LPF; OTHER YEAST W/HYPHAE
[2016-11-02 00:28] VITALS: BP 120/64
[2016-11-02 06:45] VITALS: BP 164/86
[2016-11-02] MEDS ORDERED: LEVETIRACE100 MG/1 M PO (12:35)
[2016-11-02] MEDS ORDERED: DECADRON4 MG PO (12:35)
[2016-11-02 15:00] VITALS: BP 125/72
== END 2016-11-02 16:58 | disposition home or self-care (01) | DRG 100 ==
LOC: EME → EDBD 02:06 → 5EAST 03:54 → EDOF 03:54 → ENRESERV 03:56 → 5EAST 05:21
PROVIDERS: Emergency Medicine; Hospitalist
DX: G40.909 Epilepsy, unspecified, not intractable, without status epilepticus (principal); G93.6 Cerebral edema; C79.31 Secondary malignant neoplasm of brain; L89.153 Pressure ulcer of sacral region, stage 3; L89.629 Pressure ulcer of left heel, unspecified stage; C79.51 Secondary malignant neoplasm of bone; L89.619 Pressure ulcer of right heel, unspecified stage; Z80.1 Family history of malignant neoplasm of trachea, bronchus and lung; C79.49 Secondary malignant neoplasm of other parts of nervous system; G82.20 Paraplegia, unspecified; N39.0 Urinary tract infection, site not specified; R91.8 Other nonspecific abnormal finding of lung field; C34.90 Malignant neoplasm of unspecified part of unspecified bronchus or lung; L98.429 Non-pressure chronic ulcer of back with unspecified severity; M51.06 Intervertebral disc disorders with myelopathy, lumbar region; K21.9 Gastro-esophageal reflux disease without esophagitis; R06.00 Dyspnea, unspecified; F17.200 Nicotine dependence, unspecified, uncomplicated; R53.1 Weakness; N40.0 Benign prostatic hyperplasia without lower urinary tract symptoms; F41.9 Anxiety disorder, unspecified; Z51.5 Encounter for palliative care; Z74.01 Bed confinement status; Z79.899 Other long term (current) drug therapy; Z92.3 Personal history of irradiation
CPT/HCPCS: 70450; 71010; 80048; 80053; 81003; 83605; 85025; 87086; 87106; 94640; 94640 76; 99202; 99281; 99285; A6260; J0696; J1100; J1953; J7030; J7050

== ENCOUNTER 2016-11-18 05:12 | Inpatient (IN) | payer OTHER ==
[~2016-11-18] VITALS: Ht 182.9 cm; Wt 95.0 kg
[2016-11-18] VITALS (13 sets, daily range): BP systolic 80–120; BP diastolic 44–84
[~2016-11-18 05:12] MED LIST changes: +DECADRON4 MG PO; +INVANZ1 GM IV; +LEVETIRACE100 MG/1 M PO; +MIRALAX255 GM PO; +PERCOCET 10/1 TABLET PO; +PROAIR HFA8.5 GM IH; +SPIRIVA18 MCG IH; +[UNRECOGNIZED DRUG - OTHER]
[2016-11-18] MEDS ORDERED: XARELTO15 MG PO ×2 (05:58)
[2016-11-18] MEDS ORDERED: OXYCODONE-APAP1 EACH PO (05:59)
[2016-11-18] MEDS ORDERED: DEXAMETHASONE4 MG PO (06:00)
[2016-11-18] MEDS ORDERED: PROTONIX40 MG PO (06:00)
[2016-11-18] MEDS ORDERED: FENTANYL1 EAC5 TD (06:01)
[2016-11-18 06:09] LABS: HEMATOCRIT 20.4 % (38.0-50.0); MCH 26.5 PG (29.0-34.0); MCHC 29.4 G/DL (30.0-36.0); MCV 90.3 FL (86-99); MEAN PLAT.VOLUME 9.7 uM^3 (9.0-12.4); NRBC (%) 0.1 /100 WBC (0-0); PLATELET COUNT 324 K/uL (156-360); RBC DIS.WIDTH-CV 21.6 % (11.8-14.6); RBC DIS.WIDTH-SD 68.6 % (39-53); RED BLOOD COUNT 2.26 M/uL (4.00-5.50); WHITE BLOOD COUNT 36.2 K/uL (4.1-10.2)
[2016-11-18 06:15] LABS: CHLORIDE 95 mEq/L (99-109); POTASSIUM 4.2 mEq/L (3.7-5.4); SODIUM 131 mEq/L (136-147)
[2016-11-18 06:17] LABS: GLUCOSE 135 mg/dL (70-99)
[2016-11-18 06:18] LABS: ANION GAP 19 MEQ/L (2-14)
[2016-11-18 06:19] LABS: TOTAL BILIRUBIN 0.4 mg/dL (0.0-1.0)
[2016-11-18 06:20] LABS: ALKALINE PHOSPHATASE 261 IU/L (3-129)
[2016-11-18 06:21] LABS: GFR ESTIMATE (CALCULATED) > 59 mL/min/
[2016-11-18 06:22] LABS: UREA NITROGEN (BUN) 26 mg/dL (9-23)
[2016-11-18 06:24] LABS: LIPASE 4 U/L (1.0-51.0)
[2016-11-18 06:24] LABS: TROP-I INTERPRETATION NEGATIVE; TROPONIN-I < 0.01 ng/mL (0.0-0.30)
[2016-11-18 10:59] LABS: ADD MIUA? YES; BILIRUBIN NEGATIVE; BLOOD SMALL; COLOR YELLOW ((YELLOW)); GLUCOSE (STRIP) NEGATIVE; KETONES NEGATIVE; LEUKOCYTES LARGE; NITRITE NEGATIVE; PROTEIN (STRIP) 30
[2016-11-18 11:06] LABS: BACTERIA 2+ /HPF; BUDDING YEAST 4+; EPITHELIAL CELLS RARE /HPF; MUCUS TRACE /LPF; RED BLOOD CELLS TNTC /HPF (0-5); UCUL ADDED? YES; WHITE BLOOD CELLS 15-20 /HPF (0-5)
[2016-11-18 11:16] LABS: SPECIFIC GRAVITY 1.072 (1.000-1.030)
[2016-11-19] VITALS (14 sets, daily range): BP systolic 96–146; BP diastolic 57–74
[2016-11-19 06:28] LABS: ALKALINE PHOSPHATASE 168 IU/L (3-129); ANION GAP 7 MEQ/L (2-14); CHLORIDE 100 MEQ/L (99-109); GFR ESTIMATE (CALCULATED) > 59 mL/min/; GLUCOSE 127 mg/dL (70-99); POTASSIUM 3.9 MEQ/L (3.7-5.4); SAMPLE HEMOLYSIS CHECK 0; SAMPLE ICTERIC CHECK 0; SAMPLE LIPEMIA CHECK 0; SODIUM 131 MEQ/L (136-147); TOTAL BILIRUBIN 0.3 MG/DL (0.0-1.0); UREA NITROGEN (BUN) 19 mg/dL (9-23); VANCOMYCIN, TROUGH 13.1 MCG/ML (10-20)
[2016-11-19 06:36] LABS: HEMATOCRIT 21.8 % (38.0-50.0); MCH 28.6 PG (29.0-34.0); MCHC 32.6 G/DL (30.0-36.0); MCV 87.9 FL (86-99); RBC DIS.WIDTH-CV 18.9 % (11.8-14.6); RBC DIS.WIDTH-SD 60.1 % (39-53); RED BLOOD COUNT 2.48 M/uL (4.00-5.50); WHITE BLOOD COUNT 17.9 K/uL (4.1-10.2)
[2016-11-19 07:11] LABS: PLAT.SUFFICIENCY ADEQUATE; PLATELET CLUMPS PRESENT - PLATELET COUNT APPEARS ADQ.; PLATELET COUNT UNABLE TO REPORT K/uL (156-360)
[2016-11-19 21:19] LABS: POC NON-PRINT COM 1 ND
[2016-11-19 22:56] LABS: METH RESISTANT S AUREUS PCR NEGATIVE (NEGATIVE)
[2016-11-19 22:58] LABS: PROBE CHECK PASS; SPECIMEN PROCESSING CONTROL PASS
[2016-11-20] VITALS (11 sets, daily range): BP systolic 118–162; BP diastolic 59–87
[2016-11-20 02:40] LABS: EOSINOPHIL (%) 0.1 % (0-5); HEMATOCRIT 24.8 % (38.0-50.0); IMMATURE GRANULOCYTE (%) 1.9 % (0.0-0.7); IMMATURE GRANULOCYTE COUNT 0.3 K/uL; INSTRUMENT ABS NEUTROPHIL CT 16.5 K/uL; LYMPHOCYTE COUNT 0.4 K/uL (1.0-2.8); MCH 28.3 PG (29.0-34.0); MCHC 33.1 G/DL (30.0-36.0); MCV 85.5 FL (86-99); MEAN PLAT.VOLUME 9.5 uM^3 (9.0-12.4); MONOCYTE (%) 3.4 % (3-12); MONOCYTE COUNT 0.6 K/uL (0-0.8); NEUTROPHIL (%) 92.2 % (45-76); NEUTROPHIL COUNT 16.5 K/uL (1.8-6.4); RBC DIS.WIDTH-CV 18.4 % (11.8-14.6); RBC DIS.WIDTH-SD 56.2 % (39-53); WHITE BLOOD COUNT 17.9 K/uL (4.1-10.2)
[2016-11-20 02:51] LABS: CHLORIDE 102 mEq/L (99-109); POTASSIUM 3.5 mEq/L (3.7-5.4)
[2016-11-20 02:52] LABS: SODIUM 134 mEq/L (136-147)
[2016-11-20 02:53] LABS: GLUCOSE 157 mg/dL (70-99)
[2016-11-20 02:55] LABS: ANION GAP 12 MEQ/L (2-14)
[2016-11-20 02:57] LABS: GFR ESTIMATE (CALCULATED) > 59 mL/min/
[2016-11-20 02:58] LABS: UREA NITROGEN (BUN) 12 mg/dL (9-23)
[2016-11-20 03:27] LABS: PLAT.SUFFICIENCY ADEQUATE
[2016-11-20 18:34] LABS: TROP-I INTERPRETATION NEGATIVE; TROPONIN-I < 0.01 ng/mL (0.0-0.30)
[2016-11-20 20:47] LABS: HEMATOCRIT 30.5 % (38.0-50.0); MCV 85.4 FL (86-99)
[2016-11-21 03:55] VITALS: BP 128/75
[2016-11-21 05:14] LABS: EOSINOPHIL (%) 0 % (0-5); HEMATOCRIT 30.3 % (38.0-50.0); IMMATURE GRANULOCYTE (%) 3.5 % (0.0-0.7); IMMATURE GRANULOCYTE COUNT 0.7 K/uL; LYMPHOCYTE COUNT 0.4 K/uL (1.0-2.8); MCH 28.4 PG (29.0-34.0); MCV 86.1 FL (86-99); MEAN PLAT.VOLUME 9.6 uM^3 (9.0-12.4); MONOCYTE (%) 2.6 % (3-12); MONOCYTE COUNT 0.5 K/uL (0-0.8); RBC DIS.WIDTH-CV 18.7 % (11.8-14.6); RBC DIS.WIDTH-SD 58.4 % (39-53); WHITE BLOOD COUNT 19.6 K/uL (4.1-10.2)
[2016-11-21 05:25] LABS: PLATELET COUNT 141 K/uL (156-360); RED BLOOD COUNT 3.52 M/uL (4.00-5.50)
[2016-11-21 05:36] LABS: ANION GAP 9 MEQ/L (2-14); CHLORIDE 100 MEQ/L (99-109); GFR ESTIMATE (CALCULATED) > 59 mL/min/; GLUCOSE 123 mg/dL (70-99); POTASSIUM 4.2 MEQ/L (3.7-5.4); SAMPLE HEMOLYSIS CHECK 0; SAMPLE ICTERIC CHECK 0; SAMPLE LIPEMIA CHECK 0; SODIUM 135 MEQ/L (136-147); UREA NITROGEN (BUN) 9 mg/dL (9-23)
[2016-11-21 08:32] VITALS: BP 127/88
[2016-11-21 11:14] VITALS: BP 131/80
[2016-11-21 15:18] VITALS: BP 127/89
[2016-11-21 19:10] VITALS: BP 104/62
[2016-11-21 23:10] VITALS: BP 116/60
[2016-11-22 04:00] VITALS: BP 119/58
[2016-11-22 05:11] LABS: EOSINOPHIL (%) 0.1 % (0-5); HEMATOCRIT 28.1 % (38.0-50.0); IMMATURE GRANULOCYTE (%) 1.4 % (0.0-0.7); IMMATURE GRANULOCYTE COUNT 0.2 K/uL; INSTRUMENT ABS NEUTROPHIL CT 13.9 K/uL; LYMPHOCYTE COUNT 0.4 K/uL (1.0-2.8); MCH 27.2 PG (29.0-34.0); MCHC 31.3 G/DL (30.0-36.0); MEAN PLAT.VOLUME 9.6 uM^3 (9.0-12.4); MONOCYTE (%) 4.3 % (3-12); MONOCYTE COUNT 0.7 K/uL (0-0.8); NEUTROPHIL (%) 91.2 % (45-76); NEUTROPHIL COUNT 13.9 K/uL (1.8-6.4); PLATELET COUNT 139 K/uL (156-360); RBC DIS.WIDTH-CV 18.6 % (11.8-14.6); RBC DIS.WIDTH-SD 58.6 % (39-53); RED BLOOD COUNT 3.23 M/uL (4.00-5.50); WHITE BLOOD COUNT 15.2 K/uL (4.1-10.2)
[2016-11-22 05:43] LABS: ANION GAP 9 MEQ/L (2-14); CHLORIDE 97 MEQ/L (99-109); GFR ESTIMATE (CALCULATED) > 59 mL/min/; GLUCOSE 111 mg/dL (70-99); MAGNESIUM 1.8 mg/dl (1.3-2.7); POTASSIUM 3.7 MEQ/L (3.7-5.4); SAMPLE HEMOLYSIS CHECK 0; SAMPLE ICTERIC CHECK 0; SAMPLE LIPEMIA CHECK 0; SODIUM 134 MEQ/L (136-147); UREA NITROGEN (BUN) 10 mg/dL (9-23)
[2016-11-22 07:28] VITALS: BP 125/61
[2016-11-22 13:03] VITALS: BP 106/66
[2016-11-22 17:39] VITALS: BP 100/64
[2016-11-22 19:45] VITALS: BP 109/64
[2016-11-22 23:00] VITALS: BP 106/62
[2016-11-23 04:00] VITALS: BP 113/73
[2016-11-23 08:15] VITALS: BP 119/68
[2016-11-23] MEDS ORDERED: LEVOFLOXACIN750 MG PO (14:46)
[2016-11-23] MEDS ORDERED: METRONIDAZOLE500 MG PO (14:46)
[2016-11-23] MEDS ORDERED: LASIX20 MG PO (14:50)
[2016-11-23] MEDS ORDERED: K-DUR10 MEQ PO (14:51)
[2016-11-23 15:21] VITALS: BP 108/62
[2016-11-23 15:38] VITALS: BP 108/62
== END 2016-11-23 17:57 | disposition home or self-care (01) | DRG 177 ==
LOC: EME → EDBD 05:12 → 4EAST 08:48 → EDOF 08:48 → CANRESERV 08:49 → ENRESERV 08:49 → 4EAST 11:18 → ENPENDDIS 11-23 → 4EAST 11-23 17:57
PROVIDERS: Emergency Medicine; Hospitalist; Internal Medicine
PROC: 30233N1 Transfusion of Nonautologous Red Blood Cells into Peripheral Vein, Percutaneous Approach (ICD-10-PCS; principal; 2016-11-19)
DX: J69.0 Pneumonitis due to inhalation of food and vomit (principal); C79.51 Secondary malignant neoplasm of bone; C34.90 Malignant neoplasm of unspecified part of unspecified bronchus or lung; N39.0 Urinary tract infection, site not specified; E87.2 Acidosis; J44.9 Chronic obstructive pulmonary disease, unspecified; F17.200 Nicotine dependence, unspecified, uncomplicated; G89.29 Other chronic pain; E86.0 Dehydration; K21.9 Gastro-esophageal reflux disease without esophagitis; N40.0 Benign prostatic hyperplasia without lower urinary tract symptoms; J98.11 Atelectasis; R13.10 Dysphagia, unspecified; Z51.5 Encounter for palliative care; D73.5 Infarction of spleen; A41.9 Sepsis, unspecified organism; G82.20 Paraplegia, unspecified; E87.6 Hypokalemia; E87.1 Hypo-osmolality and hyponatremia; C78.7 Secondary malignant neoplasm of liver and intrahepatic bile duct; H54.0 Blindness, both eyes; L89.159 Pressure ulcer of sacral region, unspecified stage; M51.06 Intervertebral disc disorders with myelopathy, lumbar region; C79.49 Secondary malignant neoplasm of other parts of nervous system; C79.31 Secondary malignant neoplasm of brain; Z79.01 Long term (current) use of anticoagulants; Z74.01 Bed confinement status; Z92.3 Personal history of irradiation; D53.9 Nutritional anemia, unspecified
CPT/HCPCS: 71010; 71275; 74174; 77290; 77307; 77331; 77334; 77412; 77417; 80048; 80053; 80202; 81003; 82272; 83605; 83690; 83735; 83880; 84484; 85014; 85018; 85025; 85027; 86850; 86900; 86901; 86920; 87040; 87086; 87106; 87641; 92610 GN; 93005; 94640; 94640 76; 99202; 99281; 99285; J0456; J1940; J1956; J2270; J2405; J2543; J3370; J7030; J7050; J7120; J8540; P9016; S0028

== ENCOUNTER 2016-12-04 01:42 | Inpatient (IN) | payer OTHER ==
[~2016-12-04] VITALS: Ht 182.9 cm; Wt 89.9 kg
[~2016-12-04 01:42] MED LIST changes: +FENTANYL1 EAC5 TD; +K-DUR10 MEQ PO; +LASIX20 MG PO; +LEVOFLOXACIN750 MG PO; +METRONIDAZOLE500 MG PO; +OXYCODONE-APAP1 EACH PO; +XARELTO15 MG PO
[2016-12-04 03:47] LABS: HEMATOCRIT 37.6 % (38.0-50.0); MCH 27.4 PG (29.0-34.0); MCHC 31.4 G/DL (30.0-36.0); MCV 87.4 FL (86-99); MEAN PLAT.VOLUME 9.3 uM^3 (9.0-12.4); PLATELET COUNT 114 K/uL (156-360); RBC DIS.WIDTH-CV 17.5 % (11.8-14.6); RBC DIS.WIDTH-SD 56.2 % (39-53); WHITE BLOOD COUNT 30.3 K/uL (4.1-10.2)
[2016-12-04 03:53] LABS: CHLORIDE 93 mEq/L (99-109); POTASSIUM 3.4 mEq/L (3.7-5.4); SODIUM 133 mEq/L (136-147)
[2016-12-04 03:55] LABS: GLUCOSE 83 mg/dL (70-99)
[2016-12-04 03:57] LABS: ANION GAP 13 MEQ/L (2-14)
[2016-12-04 03:59] LABS: GFR ESTIMATE (CALCULATED) > 59 mL/min/
[2016-12-04 04:00] LABS: UREA NITROGEN (BUN) 20 mg/dL (9-23)
[2016-12-04 04:05] LABS: TROP-I INTERPRETATION NEGATIVE; TROPONIN-I < 0.01 ng/mL (0.0-0.30)
[2016-12-04 05:18] LABS: ADD MIUA? YES; BILIRUBIN SMALL; BLOOD SMALL; COLOR AMBER ((YELLOW)); GLUCOSE (STRIP) NEGATIVE; KETONES NEGATIVE; LEUKOCYTES MODERATE; NITRITE NEGATIVE; PROTEIN (STRIP) 30; SPECIFIC GRAVITY 1.029 (1.000-1.030)
[2016-12-04 05:45] LABS: BACTERIA 2+ /HPF; CASTS NONE SEEN /LPF; CRYSTALS PRESENT; EPITHELIAL CELLS RARE /HPF; MUCUS RARE /LPF; RED BLOOD CELLS 0-5 /HPF (0-5); UCUL ADDED? YES; WHITE BLOOD CELLS 20-30 /HPF (0-5)
[2016-12-04 05:46] LABS: AMORPHOUS URATES CRYSTALS 3+; CALCIUM OXALATE CRYSTALS RARE /HPF; OTHER YEAST W/HYPHAE
[2016-12-04 09:26] VITALS: BP 108/68
[2016-12-04 09:32] LABS: TROP-I INTERPRETATION NEGATIVE; TROPONIN-I < 0.01 ng/mL (0.0-0.30)
[2016-12-04 10:02] VITALS: BP 84/54
[2016-12-04 11:01] VITALS: BP 101/57
[2016-12-04] MEDS ORDERED: MORPHINE SULFAT15 MG PO (13:44)
[2016-12-04 16:18] LABS: TROP-I INTERPRETATION NEGATIVE; TROPONIN-I < 0.01 ng/mL (0.0-0.30)
[2016-12-04 16:56] VITALS: BP 75/48
[2016-12-04 23:45] VITALS: BP 89/55
[2016-12-05 04:01] VITALS: BP 108/52
[2016-12-05 07:25] VITALS: BP 97/57
[2016-12-05 08:23] LABS: EOSINOPHIL (%) 0.3 % (0-5); EOSINOPHIL COUNT 0.1 K/uL (0-0.3); HEMATOCRIT 34.1 % (38.0-50.0); IMMATURE GRANULOCYTE (%) 0.9 % (0.0-0.7); IMMATURE GRANULOCYTE COUNT 0.2 K/uL; INSTRUMENT ABS NEUTROPHIL CT 17.3 K/uL; LYMPHOCYTE COUNT 0.5 K/uL (1.0-2.8); MCH 27.3 PG (29.0-34.0); MCHC 30.5 G/DL (30.0-36.0); MCV 89.5 FL (86-99); MEAN PLAT.VOLUME 9.8 uM^3 (9.0-12.4); MONOCYTE (%) 3.1 % (3-12); MONOCYTE COUNT 0.6 K/uL (0-0.8); NEUTROPHIL (%) 92.8 % (45-76); NEUTROPHIL COUNT 17.3 K/uL (1.8-6.4); PLATELET COUNT 88 K/uL (156-360); RBC DIS.WIDTH-CV 17.5 % (11.8-14.6); RBC DIS.WIDTH-SD 57.5 % (39-53); RED BLOOD COUNT 3.81 M/uL (4.00-5.50); WHITE BLOOD COUNT 18.7 K/uL (4.1-10.2)
[2016-12-05 08:49] LABS: ANION GAP 10 MEQ/L (2-14); CHLORIDE 97 MEQ/L (99-109); GFR ESTIMATE (CALCULATED) > 59 mL/min/; GLUCOSE 84 mg/dL (70-99); POTASSIUM 3.4 MEQ/L (3.7-5.4); SAMPLE HEMOLYSIS CHECK 0; SAMPLE ICTERIC CHECK 0; SAMPLE LIPEMIA CHECK 0; SODIUM 139 MEQ/L (136-147); UREA NITROGEN (BUN) 20 mg/dL (9-23)
[2016-12-05 16:31] VITALS: BP 103/56
[2016-12-05 16:55] VITALS: BP 110/56
[2016-12-05 20:17] VITALS: BP 94/56
[2016-12-05 23:29] VITALS: BP 100/61
[2016-12-06 07:15] VITALS: BP 97/55
[2016-12-06 16:06] VITALS: BP 170/80
[2016-12-07 15:28] VITALS: BP 86/55
[2016-12-08 00:12] VITALS: BP 92/55
[2016-12-08 08:34] VITALS: BP 86/53
== END 2016-12-08 11:34 | disposition hospice, home (50) | DRG 698 ==
LOC: EME 01:42 → EDOF 05:50 → 5EAST 05:50 → ENRESERV 05:57 → 5EAST 08:11 → ENPENDDIS 12-08 11:15 → 5EAST 12-08 11:34
PROVIDERS: Emergency Medicine; Hospitalist; Student in an Organized Health Care Education/Training Program
DX: T83.511A Infection and inflammatory reaction due to indwelling urethral catheter, initial encounter (principal); A41.9 Sepsis, unspecified organism; J18.9 Pneumonia, unspecified organism; G82.20 Paraplegia, unspecified; C34.32 Malignant neoplasm of lower lobe, left bronchus or lung; C78.7 Secondary malignant neoplasm of liver and intrahepatic bile duct; C79.31 Secondary malignant neoplasm of brain; C79.51 Secondary malignant neoplasm of bone; Z51.5 Encounter for palliative care; Z66 Do not resuscitate; E22.2 Syndrome of inappropriate secretion of antidiuretic hormone; C79.49 Secondary malignant neoplasm of other parts of nervous system; J90 Pleural effusion, not elsewhere classified; R64 Cachexia; L89.159 Pressure ulcer of sacral region, unspecified stage; F17.210 Nicotine dependence, cigarettes, uncomplicated; G89.3 Neoplasm related pain (acute) (chronic); E86.0 Dehydration; E87.6 Hypokalemia; Z74.01 Bed confinement status; Z80.1 Family history of malignant neoplasm of trachea, bronchus and lung; Z92.3 Personal history of irradiation; N40.0 Benign prostatic hyperplasia without lower urinary tract symptoms; N39.0 Urinary tract infection, site not specified; K21.9 Gastro-esophageal reflux disease without esophagitis; R13.10 Dysphagia, unspecified; Z68.26 Body mass index [BMI] 26.0-26.9, adult
CPT/HCPCS: 71020; 77412; 80048; 80202; 81003; 83605; 84484; 85025; 85027; 87040; 87086; 87106; 93005; 94640; 94640 76; 94760; 94799; 99202; 99281; 99285; J1170; J1450; J1644; J2270; J2405; J2543; J3370; J3480; J7030; J7040; J7050; J7120; J8540; P9045; Q0164